=== PATIENT | female | born 1960 | race Caucasian/White ===

== ENCOUNTER 2019-02-08 12:09 | Emergency (ER) | payer OTHER ==
--- NOTE | 2019-02-08 12:26 | EDM.PDOC ---
ED HPI GENERAL MEDICAL PROBLEM - General Chief Complaint: Genitourinary Problem Stated Complaint: KIDNEY STONES? Time Seen by Provider: 02/08/19 12:25 Source of Information: Reports: Patient, RN, RN Notes Reviewed History Limitations: Reports: No Limitations - History of Present Illness INITIAL COMMENTS - FREE TEXT/NARRATIVE: Pt sent to ER from [facility] walk in clinic with concern for possible kidney stone due to recurring episodes of severe right flank pain. Pt denies fever, chills, or dysuria. No prior Hx of kidney stones. Denies recent injury or heavy lifting. Onset: Sudden Onset Date: 02/07/19 Duration: Intermittent, Recurring Location: Reports: Abdomen, Back Quality: Reports: Ache Severity: Severe Improves with: Reports: None Worsens with: Reports: None Associated Symptoms: Reports: No Other Symptoms Right Flank Pain Score (Numeric/FACES): 8 - Related Data Allergies Allergy/AdvReac Type Severity Reaction Status Date / Time No Known Allergies Allergy Verified 02/08/19 12:31 Home Meds: Home Meds Estradiol [Estrace] 2 mg PO DAILY 02/08/19 [History] Lisinopril 5 mg PO DAILY 02/08/19 [History] Past Medical History Cardiovascular History: Reports: Hypertension Social & Family History - Family History Family Medical History: Noncontributory - Living Situation & Occupation Living situation: Reports: with Family ED ROS GENERAL - Review of Systems Review Of Systems: ROS reveals no pertinent complaints other than HPI. ED EXAM, RENAL/ - Physical Exam Exam: See Below Exam Limited By: No Limitations General Appearance: Alert, WD/WN, No Apparent Distress, Obese Head: Atraumatic, Normocephalic Neck: Normal Inspection Respiratory/Chest: No Respiratory Distress, Lungs Clear, Normal Breath Sounds, No Accessory Muscle Use, Chest Non-Tender Cardiovascular: Normal Peripheral Pulses, Regular Rate, Rhythm, No Edema, No Gallop, No JVD, No Murmur, No Rub GI/Abdominal: Normal Bowel Sounds, Soft, Non-Tender, No Organomegaly, No Distention, No Abnormal Bruit, No Mass Back Exam: Normal Inspection, Full Range of Motion. No: CVA Tenderness (L), CVA Tenderness (R) Extremities: Normal Inspection Neurological: Alert, Oriented, No Motor/Sensory Deficits Psychiatric: Normal Affect, Normal Mood Skin Exam: Warm, Dry, Intact, Normal Color, No Rash Course - Vital Signs Last Recorded V/S: Last Vital Signs Temp 97.9 F 02/08/19 12:35 Pulse 80 02/08/19 12:35 Resp 16 02/08/19 12:35 BP 144/68 H 02/08/19 12:35 Pulse Ox 99 02/08/19 12:35 - Orders/Labs/Meds Orders: Active Orders 24 hr Category Date Time Status Peripheral IV Care [RC] . DIRECTED Care 02/08/19 12:36 Active Abdomen Pelvis wo Cont [CT] Stat Exams 02/08/19 13:00 Taken AMYLASE [CHEM] Stat Lab 02/08/19 12:50 Received COMPREHENSIVE METABOLIC PN,CMP [CHEM] Stat Lab 02/08/19 12:50 Received LIPASE [CHEM] Stat Lab 02/08/19 12:50 Received Sodium Chloride 0.9% [Saline Flush] Med 02/08/19 12:35 Active 10 ml FLUSH ASDIRECTED PRN Peripheral IV Insertion Adult [OM.PC] Routine Oth 02/08/19 12:35 Ordered Medication Orders Sodium Chloride (Saline Flush) 10 ml FLUSH ASDIRECTED PRN PRN Reason: Keep Vein Open Last Admin: 02/08/19 13:05 Dose: 10 ml Labs: Laboratory Tests 02/08/19 02/08/19 Range/Units 12:15 12:50 WBC 10.6 H (5.0-10.0) 10^3/uL RBC 4.54 (4.2-5.4) 10^6/uL Hgb 13.9 (12.0-16.0) g/dL Hct 41.0 (37.0-47.0) % MCV 90.3 (80-100) fL MCH 30.6 (27.0-34.0) pg MCHC 33.9 (33.0-35.0) g/dL Plt Count 310 (150-450) 10^3/uL Neut % (Auto) 70.5 (42.2-75.2) % Lymph % (Auto) 15.6 L (20.5-50.1) % [place] % (Auto) 12.9 H (2-8) % Eos % (Auto) 0.8 L (1.0-3.0) % Baso % (Auto) 0.2 (0.0-1.0) % Urine Color Yellow (YELLOW) Urine Appearance Slightly cloudy (CLEAR) Urine pH 5.5 (5.0-9.0) Ur Specific [place] >= 1.030 (1.005-1.030) Urine Protein Negative (NEGATIVE) Urine Glucose (UA) Negative (NEGATIVE) Urine Ketones Negative (NEGATIVE) Urine Occult Blood Trace-intact H (NEGATIVE) Urine Nitrite Negative (NEGATIVE) Urine Bilirubin Negative (NEGATIVE) Urine Urobilinogen 0.2 (0.2-1.0) mg/dL Ur Leukocyte Esterase Negative (NEGATIVE) Urine RBC 0-5 /HPF Urine WBC 0-5 (0-5/HPF) /HPF Ur Epithelial Cells Moderate H (NOT SEEN) /HPF Urine Bacteria Few (0-FEW/HPF) /HPF Urine Mucus Few H (NOT SEEN) /LPF Meds: Medications Generic Name Dose Route Start Last Admin Trade Name Freq PRN Reason Stop Dose Admin Sodium Chloride 10 ml 02/08/19 12:35 02/08/19 13:05 Saline Flush FLUSH 10 ml ASDIRECTED PRN Administration Keep Vein Open Discontinued Medications Generic Name Dose Route Start Last Admin Trade Name Freq PRN Reason Stop Dose Admin Ketorolac Tromethamine 30 mg 02/08/19 12:59 02/08/19 13:05 Toradol IVPUSH 02/08/19 13:00 30 mg ONETIME ONE Administration Ondansetron HCl 4 mg 02/08/19 12:59 02/08/19 13:05 Zofran IV 02/08/19 13:00 4 mg ONETIME ONE Administration - Radiology Interpretation Free Text/Narrative:: CT Abd/Pelvis: Rt distal ureter stone, see Rad. report. Departure - Departure Time of Disposition: 13:17 Disposition: Home, Self-Care 01 Condition: Good Clinical Impression: Kidney stone on right side - Discharge Information *PRESCRIPTION DRUG MONITORING PROGRAM REVIEWED*: No *COPY OF PRESCRIPTION DRUG MONITORING REPORT IN PATIENT EMMA: No Instructions: Renal Colic, [id number], Kidney Stones, [id number] Forms: ED Department Discharge Additional Instructions: Rx: Percocet (Oxycodone APAP) 5mg/325mg *Do not drive while under the influence of this medication. Rx: Zofran 4mg Rx: Flomax 0.4mg Rx: Cipro 500mg Drink plenty of water. Follow up in clinic if not improved in 3 to 4 days. Consider a urology referral with your clinic doctor if not improved in 1 week. Return to ER if the pain is uncontrolled, or if you develop a fever. - My Orders Last 24 Hours: My Active Orders 02/08/19 12:35 Sodium Chloride 0.9% [Saline Flush] 10 ml FLUSH ASDIRECTED PRN Peripheral IV Insertion Adult [OM.PC] Routine 02/08/19 12:36 Peripheral IV Care [RC] . DIRECTED 02/08/19 12:50 AMYLASE [CHEM] Stat COMPREHENSIVE METABOLIC PN,CMP [CHEM] Stat LIPASE [CHEM] Stat 02/08/19 13:00 Abdomen Pelvis wo Cont [CT] Stat - Assessment/Plan Last 24 Hours: My Active Orders 02/08/19 12:35 Sodium Chloride 0.9% [Saline Flush] 10 ml FLUSH ASDIRECTED PRN Peripheral IV Insertion Adult [OM.PC] Routine 02/08/19 12:36 Peripheral IV Care [RC] . DIRECTED 02/08/19 12:50 AMYLASE [CHEM] Stat COMPREHENSIVE METABOLIC PN,CMP [CHEM] Stat LIPASE [CHEM] Stat 02/08/19 13:00 Abdomen Pelvis wo Cont [CT] Stat
[2019-02-08] MEDS: Ondansetron 4 MG/2 ML SDV IV ONE (13:05)
[2019-02-08] MEDS: Ketorolac 30 MG/ML SDV IVPUSH ONE (13:05)
[2019-02-08] MEDS: Sodium Chloride 0.9% 10 ML Syringe FLUSH PRN (13:05)
[2019-02-08 13:19] LABS: ANION GAP 12.1
== END 2019-02-08 13:30 | disposition home or self-care (01) ==
LOC: DL.ED 12:09
DX: N13.2 Hydronephrosis with renal and ureteral calculous obstruction (principal); I10 Essential (primary) hypertension; E66.9 Obesity, unspecified; Z79.899 Other long term (current) drug therapy; Z68.37 Body mass index [BMI] 37.0-37.9, adult
CPT/HCPCS: 36415; 74176; 80053; 81001; 82150; 83690; 85025; 96374; 96375; 99284; J1885; J2405

== ENCOUNTER 2021-01-07 05:58 | Day surgery (SDC) | payer OTHER ==
[~2021-01-07 05:58] MED LIST: Midazolam 1 MG/ML 2 ML SDV ONE; fentaNYL 100 MCG/2 ML SDV ONE
[2021-01-07] MEDS ORDERED: Midazolam 1 MG/ML 2 ML SDV IV ONE ×5 (05:59→07:15)
[2021-01-07] MEDS ORDERED: fentaNYL 100 MCG/2 ML SDV IV ONE ×3 (05:59→07:09)
[2021-01-07] MEDS ORDERED: Dextrose 5%-0.45% NaCl 1,000 ML IV SCH (06:00)
[2021-01-07] MEDS ORDERED: Sodium Chloride 0.9% 10 ML Syringe FLUSH PRN (06:00)
--- NOTE | 2021-01-07 08:15 | OR ---
DATE: 01/07/2021 PROCEDURE: Total colonoscopy, NBI, and multiple cold snare polypectomies. INSTRUMENT USED: [id number] Olympus video colonoscope. PREMEDICATIONS: Fentanyl 100 mcg intravenous, Versed 3 mg intravenous. Nasal O2 cannula. The procedure was done under pulse oximetry, BP recording, and monitor worker. INDICATION: The patient with previous colonic adenoma, surveillance colonoscopic examination is done for detection of any polypoid lesions and removal, endoscopic hemostasis therapy if needed. DESCRIPTION OF PROCEDURE: Initial rectal exam was unremarkable. Rigid anoscopy was normal. The colonoscope was passed with ease to the ileocecal area. Photographs were taken of the normal-appearing cecum identified by double-bulged ileocecal folds. No bleeding was noted from any of the visualized areas at the commencement of the examination. The bowel preparation was found to be adequate, [place] scale 2 in right colon, 3 in transverse and left colon, total score 8. No stricture. No vascular ectasia. No large isolated ulcerations seen. No evidence of diffuse inflammatory bowel disease in the form of friability, contact bleeding, or ulcerations. Probing the proximal sides of folds and flexures using adequate distention and clearing up the stool material, withdrawal of the scope was made. In the mid descending colon area, diminutive polyps 2 in number were noted, NBI views were obtained, photographs were taken of the polyp, multiple cold snare polypectomies were done, the tissues were retrieved and sent for histopathology. No bleeding was noted from any of the visualized areas at the completion of examination. IMPRESSION: Diminutive colonic polyps. The patient tolerated the procedure well. [facility] /[id number]
== END 2021-01-07 09:34 | disposition home or self-care (01) ==
LOC: DL.ENDO 05:58
PROVIDERS: ATTEND Internal Medicine Gastroenterology
DX: Z12.11 Encounter for screening for malignant neoplasm of colon (principal); D12.4 Benign neoplasm of descending colon; E66.09 Other obesity due to excess calories; E78.5 Hyperlipidemia, unspecified; R73.9 Hyperglycemia, unspecified; I12.9 Hypertensive chronic kidney disease with stage 1 through stage 4 chronic kidney disease, or unspecified chronic kidney disease; N18.9 Chronic kidney disease, unspecified; Z98.890 Other specified postprocedural states; Z68.39 Body mass index [BMI] 39.0-39.9, adult
CPT/HCPCS: 45385; J2250; J3010; J7042